=== PATIENT | female | born 2000 ===

== ENCOUNTER 2024-08-02 12:17 | Emergency (ER) | payer MEDICAID, SELFPAY ==
[2024-08-02 12:27] VITALS: BP 104/67; PULSE 74; RESP 18; TEMP 36.9; O2SAT 100
--- NOTE | 2024-08-02 12:53 | XR_ITS ---
Examination: PA lateral chest 2 views TECHNIQUE: Upright PA lateral chest 2 views Date and time: July 02, 2024 1309 hours INDICATIONS: Shortness of breath chest pain beginning 2 days ago. FINDINGS: Normal heart size. Lungs are clear. The osseous structures are intact. IMPRESSION: No active disease
--- NOTE | 2024-08-02 12:53 | EKG_ITS ---
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
--- NOTE | 2024-08-02 12:53 | PD.EDRME ---
Rapid Medical Screening Exam RME Arrival date/time: 08/02/24 12:17 24-year-old female presents the emergency department today for complaints of chest pain Chief Complaint: Back Pain/Injury Vital signs: Vital Signs Temperature 98.4 F 08/02/24 12:27 Pulse Rate 74 08/02/24 12:27 Respiratory Rate 18 08/02/24 12:27 Blood Pressure 104/67 08/02/24 12:27 Pulse Oximetry (%) 100 08/02/24 12:27 Oxygen Delivery Method Room Air 08/02/24 12:27
[2024-08-02 13:36] LABS: Basophils # (Auto) 0.1 Thou/mm3 (0.0-0.2); Basophils % (Auto) 1 % (0-2.5); Eosinophils # (Auto) 0.2 Thou/mm3 (0.0-0.5); Eosinophils % (Auto) 2 % (0-10); Hematocrit 39.9 % (36.0-46.0); Hemoglobin 13.5 g/dL (12.0-16.0); Immature Granulocytes % (Auto) 0 % (0-0); Immature Granulocytes Auto 0.03 Thou/mm3 (0.00-0.00); Lymphocytes # (Auto) 1.8 Thou/mm3 (1.0-4.8); Lymphocytes % (Auto) 20 % (10-50); Mean Corpuscular HGB Conc 33.8 g/dl (31.0-37.0); Mean Corpuscular Hemoglobin 28.5 pg (25.0-35.0); Mean Corpuscular Volume 84 fL (80-100); Monocytes # (Auto) 0.8 Thou/mm3 (0.0-0.8); Monocytes % (Auto) 9 % (0-12); Neutrophils # (Auto) 5.9 Thou/mm3 (1.8-7.7); Neutrophils % (Auto) 67 % (37-80); Nucleated Red Blood Cell % 0 /100 WBC (0); Platelet Count 244 Thou/mm3 (140-440); Red Blood Count 4.73 Miln/mm3 (4.00-5.20); White Blood Count 8.7 Thou/mm3 (3.6-11.0)
[2024-08-02 14:02] LABS: Alanine Aminotransferase 23 U/L (10-49); Albumin, Serum 4.2 gm/dL (3.5-5.0); Albumin/Globulin Ratio 1.9 (1.2-2.2); Alkaline Phosphatase 66 U/L (46-116); Anion Gap 10 (7-16); Aspartate Amino Transferase 24 U/L (0-34); BUN/Creatinine Ratio 13 Ratio (12-20); Bilirubin,Total 0.4 mg/dL (0.3-1.2); Blood Urea Nitrogen 8 mg/dL (9-23); Calcium 8.8 mg/dL (8.3-10.6); Calcium (Corrected) 8.8 mg/dL (8.5-10.1); Carbon Dioxide 26.5 mMol/L (20.0-31.0); Chloride 105 mMol/L (98-107); Creatinine (Component) 0.6 mg/dL (0.6-1.3); Globulin 2.2 gm/dL (2.3-3.5); Glucose 88 mg/dL (74-106); Osmolality,Calculated 278 (275-295); Potassium 3.6 mMol/L (3.4-5.1); Sodium 141 mMol/L (136-145); Total Protein 6.4 gm/dL (5.7-8.2); Troponin I < 0.002 ng/mL (0.0-0.045); eGFR > 60 See Note
[2024-08-02 16:14] LABS: HCG Qualitative,Urine Positive
--- NOTE | 2024-08-02 17:25 | PD.EDBACK ---
ED Back Injury Pain RME/HPI General Chief Complaint: Back Pain/Injury Stated Complaint: LOWER BACK HURTS MAKING IT DIFFICULT TO BREATH Time Seen by Provider: 08/02/24 15:32 Source: patient Arrival date/time: 08/02/24 12:17 Limitations: no limitations RME / HPI RME / HPI Narrative: 24-year-old female with no past medical history is here today with left-sided mid back pain. She has no shortness of breath or cough. She has no abdominal pain, nausea, no vomiting. She has not urinary frequency or dysuria. Her last menstrual cycle was a month ago. She states she has had a single and has a single child. She denies any past surgical history. She has no other acute complaints. MD Complaint: back pain Related Data Home Medications ?Medication ?Instructions ?Recorded ?Confirmed ferrous sulfate 325 mg (65 mg 1 tab PO QDAY 07/01/21 07/01/21 iron) tablet prenat.vits,alicia,nqj-aaxo-mqkww 1 tab PO QDAY 07/01/21 07/01/21 Previous Rx's ?Medication ?Instructions ?Recorded benzocaine 20 %-menthol 0.5 % 1 spray topical TID #56 pumps 07/02/21 topical aerosol (Dermoplast (with menthol)) docusate sodium 100 mg capsule 100 mg PO BID #60 caps 07/02/21 (Colace) ibuprofen 800 mg tablet 800 mg PO Q6H PRN pain #90 tabs 07/02/21 lanolin 50 % topical ointment 1 applic topical TID PRN skin 07/02/21 irritation #15 tubes Allergies Allergy/AdvReac Type Severity Reaction Status Date / Time No Known Allergies Allergy Verified 08/02/24 12:23 Review of Systems Review of Systems Systems Reviewed: All systems reviewed, normal except as documented ED Exam General Limitations: Present no limitations General appearance: Present alert and in no apparent distress Head Head exam: Present atraumatic Eye Eye exam: Present normal appearance, PERRL and EOMI ENT ENT exam: Present normal exam, normal oropharynx and mucous membranes moist Neck Neck exam: Present normal inspection, full ROM and trachea midline Chest Chest inspection: Present normal inspection and symmetric chest wall rise Respiratory Respiratory exam: Present normal lung sounds bilaterally Cardiovascular Cardiovascular exam: Present regular rate, normal rhythm and normal heart sounds Abdominal Exam Abdominal exam: Present soft and normal bowel sounds Extremities Exam Extremities exam: Present normal inspection and full ROM Back Exam Back exam: Present normal inspection and full ROM Neurological Exam Neurological exam: Present alert, oriented X3 and CN II-XII intact Psychiatric Psychiatric exam: Present normal affect and normal mood Skin Skin exam: Present warm, dry, intact and normal color Course Quality Measures none Orders Category Date Time Status EKG (ED ONLY) *Do not use* NOW Care 08/02/24 12:53 Completed EKG (ED Only) Stat Exams 08/02/24 12:53 Draft XR chest 2V Stat Exams 08/02/24 12:53 Completed CBC Stat Lab 08/02/24 13:24 Completed Comprehensive Metabolic Panel Stat Lab 08/02/24 13:24 Completed HCG Qualitative,Urine Stat Lab 08/02/24 15:15 Completed Troponin I Stat Lab 08/02/24 13:24 Completed Vital Signs Vital signs: Vital Signs Temperature 98.4 F 08/02/24 12:27 Pulse Rate 74 08/02/24 12:27 Respiratory Rate 18 08/02/24 12:27 Blood Pressure 104/67 08/02/24 12:27 Pulse Oximetry (%) 100 08/02/24 12:27 Oxygen Delivery Method Room Air 08/02/24 12:27 Back Pain / Injury MDM Narrative MDM Narrative:: 24-year-old female with no chronic medical history is here today for atraumatic back pain. Her work appears essentially unremarkable the exception of a positive hCG screen. She has no urinary complaints. She has no abdominal or pelvic pain. Patient will use Tylenol for comfort. She is asked to follow-up with her primary clinic for close recheck. Return as needed for any worsening or emergent changes. Patient data External records reviewed:: Other (specify) Clinical information provided by:: patient Social determinants that could affect healthcare access:: none Patient has the following chronic illnesses:: n/a How is presenting disease/condition affected by chronic disease/condition?: no chronic disease Evaluation data The following diagnostics were reviewed and interpreted by me:: lab results Lab and/or radiology exams considered but not ordered:: n/a Interpretation Summary: Positive hCG screen Medications / Prescriptions Medications or Prescriptions considered but not ordered:: n/a Medication administrations:: n/a Consultations Consultation(s) initiated? (list below): No Diagnosis Differential diagnosis back pain/injury: strain of lumbar region Most likely diagnosis given after review of the tests above:: Lumbar go, positive hCG screen Admission Indicated Admission indicated?: not indicated Admission Request Was there a request for admission?: No Disposition Plan Disposition Plan: Discharge Discharge Attestation Discharge Attestation: The patient and all family members were given an opportunity to ask questions and understood the discharge instructions. Discharge instructions specifically effects, indications for sooner follow up or return to the emergency department, and the expected course of current diagnosis. Patient condition: Stable Discharge Plan Plan Patient Disposition: HOME (Self Care) Patient condition on transfer: Stable Prescriptions/Referrals Prescriptions/Med Rec: No Action ferrous sulfate 325 mg (65 mg iron) tablet 1 tab PO QDAY Patient Comments: KENY Wright prenat.vits,alicia,kge-pqin-abdzv Tablet 1 tab PO QDAY Dermoplast (with menthol) 20-0.5 % aerosol 1 spray topical TID Qty: 56 0RF ibuprofen 800 mg tablet 800 mg PO Q6H MDD 4 PRN (Reason: pain) Qty: 90 0RF docusate sodium [Colace] 100 mg capsule 100 mg PO BID Qty: 60 0RF lanolin 50 % ointment 1 applic topical TID PRN (Reason: skin irritation) Qty: 15 0RF Referrals: Mónica Grace PA-C [Primary Care Provider] - In 1 week Problem List Clinical Impression: Lumbago, Patient/Caregiver Discharge Instructions Education Materials: Back Basics: A Healthy Spine, Preg Back Pain Exercise Additional Instructions: Use Tylenol for comfort. Avoid ibuprofen. Contact your primary clinic to schedule close follow-up appointment. Return as needed for any worsening or emergent changes. Print Language: Icelandic Stand Alone Forms: Alesha Award Info., Patient Portal Info Letter
[2024-08-02 17:35] VITALS: BP 120/62; PULSE 70; RESP 18; TEMP 36.7; O2SAT 99
== END 2024-08-02 17:35 | disposition home or self-care (01) ==
PROVIDERS: Nurse Practitioner Primary Care; Emergency Provider Family Medicine; PCP Physician Assistant
DX: O26.899 Other specified pregnancy related conditions, unspecified trimester (principal); Z3A.00 Weeks of gestation of pregnancy not specified; M54.50 Low back pain, unspecified; R06.02 Shortness of breath
CPT/HCPCS: 36415; 71046; 80053; 81025; 84484; 85025; 93005; 99283